=== PATIENT | female | born 1930 | race African-American/Black ===

== ENCOUNTER 2017-05-13 12:44 | Observation (INO) | payer BC, MEDICAID ==
[~2017-05-13] VITALS: Ht 157.5 cm; Wt 45.4 kg
[~2017-05-13 12:44] MED LIST: AMLO10TA80 PO; APIX5TAB PO; CLON0.2T PO; DOCU-150 PO; FOLI-43 PO; ISOS60TA4 PO; MELO-106 PO; MEMA10TA2 PO; QUET25TA PO; SPIR25TA4 PO; TIMO15DR12 BOTHEYE; XALAO EACHEYE
[2017-05-13 15:02] LABS: BASOPHILS % 0.6 % (0.0-2.0); EOSINOPHILS % 2.4 % (0.0-5.0); HEMATOCRIT. 30.2 % (36.0-48.0); HEMOGLOBIN. 10.2 g/dL (12.0-16.0); LYMPHOCYTES % 30.9 % (20.0-50.0); MEAN CORPUSCULAR HEMOGLOBIN 30.8 pg (28.0-32.0); MEAN CORPUSCULAR VOLUME 90.8 fL (81.0-99.0); MEAN PLATELET VOLUME 6.8 fl (7.4-10.4); MONOCYTES % 13.3 % (2.0-8.0); NEUTROPHILS % 52.8 % (40.0-76.0); PLATELET 256 x1000/uL (130-400); RED BLOOD CELL COUNT 3.33 mill/uL (4.2-5.4)
[2017-05-13 15:18] LABS: CHLORIDE 106 mEq/L (98-107)
[2017-05-13 15:22] LABS: ETHANOL BLOOD < 10 mg/dL
[2017-05-13 15:24] LABS: CREATINE KINASE 59 IU/L (26-192); TROPONIN I < 0.02 ng/mL (0.00-0.04)
[2017-05-13 15:35] LABS: CARBAMAZEPINE < 0.5 ug/mL (4-12); PHENOBARBITAL < 2.1 ug/mL (15.0-40.0); VALPROIC ACID < 3.0 ug/mL (50-100)
[2017-05-13 15:44] LABS: CLARITY URINE CLEAR (CLEAR); COLOR URINE YELLOW (YELLOW); KETONES URINE NEGATIVE (NEGATIVE); LEUKOCYTE ESTERASE URINE TRACE (NEGATIVE); NITRITE URINE NEGATIVE (NEGATIVE); OCCULT BLOOD URINE NEGATIVE (NEGATIVE); PROTEIN URINE NEGATIVE (NEGATIVE); SPECIFIC GRAVITY URINE 1.018 (1.005-1.030); UROBILINOGEN URINE 0.2 E.U./dL (0.2-1.0)
[2017-05-13] MEDS ORDERED: SODIUM CHLORIDE 0.9% 500 ML IV ONE (15:54)
[2017-05-13 15:55] LABS: *AMPHETAMINES SCREEN URINE NEGATIVE (NEGATIVE); *BARBITURATES SCREEN URINE NEGATIVE (NEGATIVE); *BENZODIAZEPINES SCREEN URINE NEGATIVE (NEGATIVE); *COCAINE SCREEN URINE NEGATIVE (NEGATIVE); CANNABINOID URINE SCREEN NEGATIVE (NEGATIVE); METHADONE URINE SCREEN NEGATIVE (NEGATIVE); OPIATES URINE SCREEN NEGATIVE (NEGATIVE); PHENCYCLIDINE URINE SCREEN NEGATIVE (NEGATIVE)
[2017-05-13 20:00] VITALS: BP 197/73
[2017-05-13 21:30] VITALS: BP 183/72
[2017-05-13] MEDS ORDERED: HYDROCODONE/ACETAMINOPHEN 5/325MG TABLET PO PRN (21:45)
[2017-05-13] MEDS ORDERED: APIXABAN 5 MG TABLET PO SCH (21:45)
[2017-05-13 22:00] VITALS: BP 183/72
[2017-05-13] MEDS: LOSARTAN POTASSIUM 50 MG TABLET PO SCH (22:04)
[2017-05-13] MEDS: QUETIAPINE FUMARATE 25MG TABLET PO SCH (22:04)
[2017-05-13] MEDS: PANTOPRAZOLE 40MG DR TABLET PO SCH (22:05)
[2017-05-13] MEDS: HYDRALAZINE HCL 50MG TABLET PO SCH (22:05)
[2017-05-13] MEDS: ASPIRIN 81MG TABLET PO SCH (22:09)
[2017-05-13] MEDS ORDERED: ACETAMINOPHEN 650MG/20.3ML UDC PO PRN (22:15)
[2017-05-13 23:00] VITALS: BP 137/52
[2017-05-14] VITALS: BP 111/46
[2017-05-14] MEDS: APIXABAN 2.5 MG TABLET PO SCH ×3 (00:36→17:31)
[2017-05-14 04:00] VITALS: BP 113/57
[2017-05-14] MEDS: HYDRALAZINE HCL 50MG TABLET PO SCH ×2 (06:00→13:44)
[2017-05-14] MEDS: PANTOPRAZOLE 40MG DR TABLET PO SCH (06:32)
[2017-05-14 06:51] LABS: PROTHROMBIN TIME 10.7 sec (9.4-11.6)
[2017-05-14 08:00] VITALS: BP 173/58
[2017-05-14 08:07] LABS: HDL CHOLESTEROL 69 mg/dL (40-59); LDL CHOLESTEROL 71 mg/dL (5-100); TROPONIN I < 0.02 ng/mL (0.00-0.04)
[2017-05-14] MEDS: QUETIAPINE FUMARATE 25MG TABLET PO SCH (09:48)
[2017-05-14] MEDS: ASPIRIN 81MG TABLET PO SCH (09:48)
[2017-05-14] MEDS: LOSARTAN POTASSIUM 50 MG TABLET PO SCH (09:49)
[2017-05-14 12:00] VITALS: BP 178/71
[2017-05-14] MEDS: PNEUMOCOCCAL 23-VAL P-SAC VAC 0.5 ML IM ONE ×2 (12:20→12:30)
[2017-05-14] MEDS: INFLUENZA VIRUS VACCINE 0.5ML SYR IM ONE ×2 (12:22→12:29)
[2017-05-14 16:00] VITALS: BP 174/67
[2017-05-14 18:25] VITALS: BP 169/70
[2017-05-15] MEDS ORDERED: FAMOTIDINE 20MG TABLET PO SCH (09:00)
== END 2017-05-14 19:02 | disposition home or self-care (01) ==
LOC: ER 12:47 → INTOOBSV 16:17 → 5WST 16:17 → ENRESERV 19:58
PROVIDERS: ADMIT Internal Medicine; ATTEND Internal Medicine
DX: R55 Syncope and collapse (principal); I16.0 Hypertensive urgency; I10 Essential (primary) hypertension; I48.91 Unspecified atrial fibrillation; I25.10 Atherosclerotic heart disease of native coronary artery without angina pectoris; G93.40 Encephalopathy, unspecified; F03.90 Unspecified dementia, unspecified severity, without behavioral disturbance, psychotic disturbance, mood disturbance, and anxiety; Z86.73 Personal history of transient ischemic attack (TIA), and cerebral infarction without residual deficits
CPT/HCPCS: 36415; 70450; 71045; 80053; 80061; 80156; 80165; 80184; 80185; 80305; 81003; 82550; 83880; 84443; 84484; 85025; 85610; 86850; 86900; 86901; 93005; 93306; 93880; 97162; 99285; G0378; G0482; J7040; 90686; 90732